=== PATIENT | female | born 1955 | race Two or more races ===

== ENCOUNTER 2025-05-10 23:20 | Emergency (ER) | payer MEDICARE, OTHER ==
[~2025-05-10] VITALS: Ht 157.5 cm; Wt 63.6 kg
[2025-05-11 02:21] VITALS: TEMP 97.9
[2025-05-11] MEDS ORDERED: TRAM50TA5 PO (06:26)
[2025-05-11 07:09] VITALS: BP 135/75; PULSE 74; RESP 18; O2SAT 98
== END 2025-05-11 07:30 | disposition home or self-care (01) ==
LOC: EMS 05-11 00:09
DX: M25.511 Pain in right shoulder (principal); M25.562 Pain in left knee; M25.531 Pain in right wrist; M25.551 Pain in right hip; W01.0XXA Fall on same level from slipping, tripping and stumbling without subsequent striking against object, initial encounter; Y93.89 Activity, other specified; Y92.009 Unspecified place in unspecified non-institutional (private) residence as the place of occurrence of the external cause; Y99.8 Other external cause status
CPT/HCPCS: 72100; 73502; 99284

== ENCOUNTER 2025-06-27 19:42 | Emergency (ER) | payer MEDICARE, OTHER ==
[~2025-06-27] VITALS: Ht 160 cm; Wt 63.6 kg
[~2025-06-27 19:42] MED LIST: TRAM50TA5 PO
[2025-06-27 20:01] VITALS: TEMP 97.8
[2025-06-27 20:50] LABS: PLATELET COUNT (AUTO) 208 K/uL (150-450); RED BLOOD CELL COUNT(AUTO) 3.83 MIL/uL (4.00-5.20); RED CELL DISTRIBUTION WIDTH 13.3 % (11.5-14.5); WHITE BLOOD COUNT (AUTO) 6.8 K/uL (4.5-11.0)
[2025-06-27 20:52] LABS: CALCIUM, TOTAL 7.9 mg/dL (8.8-10.5); CREATININE 0.46 mg/dL (0.60-1.30); GLOMERULAR FILTR. RATE CALC > 60 mL/min (>60); GLUCOSE,RANDOM 139 mg/dL (70-110); SODIUM SERUM 142 mmol/L (136-145); UREA NITROGEN, BLOOD 14 mg/dL (7-18)
[2025-06-27 21:02] LABS: ASPARTATE AMINOTRANSFERASE 19.0 U/L (15-37); CREATINE KINASE, TOTAL ONLY 54.0 U/L (26-192); TOTAL PROTEIN, SERUM 7.2 g/dL (6.4-8.2); TROPONIN I-HIGH SENSITIVITY 4 ng/L (<51)
[2025-06-27] MEDS: ACETAMINOPHEN 325 MG TABLET PO ONE (21:45)
[2025-06-27 22:52] LABS: TROPONIN I-HIGH SENSITIVITY 5 ng/L (<51)
[2025-06-27 23:41] VITALS: BP 127/62; PULSE 81; RESP 18; O2SAT 96
[2025-06-28 00:44] LABS: APPEARANCE,URINE CLEAR (CLEAR); GLUCOSE, URINE (UA) NEGATIVE (NEGATIVE); LEUKOCYTE ESTERASE ,URINE NEGATIVE (NEGATIVE); NITRATE,URINE NEGATIVE (NEGATIVE); OCCULT BLOOD,URINE NEGATIVE (NEGATIVE); SPECIFIC GRAVITIY, URINE 1.017 (1.003-1.030)
== END 2025-06-28 00:44 | disposition home or self-care (01) ==
LOC: EMS 19:42
DX: R07.89 Other chest pain (principal); M81.0 Age-related osteoporosis without current pathological fracture; Z87.81 Personal history of (healed) traumatic fracture; Z79.899 Other long term (current) drug therapy
CPT/HCPCS: 71045; 80048; 80076; 81003; 82550; 83880; 84484; 85025; 85610; 85730; 93005; 99285; 36415-L1; 36415-TC